=== PATIENT | male | born 1985 | race Caucasian/White ===

== ENCOUNTER 2019-01-29 19:39 | Emergency (ER) | payer SELFPAY ==
[2019-01-29] MEDS ORDERED: SODIUM CHLORIDE 0.9% FLUSH 10 ML SOL IV PRN (19:58)
[2019-01-29] MEDS ORDERED: ONDANSETRON HCL 4 MG/2 ML SOL IV ONE (19:58)
[2019-01-29] MEDS ORDERED: MORPHINE SULFATE 10 MG/ML SOL IV ONE (19:58)
[2019-01-29] MEDS ORDERED: ONDANSETRON HCL 4 MG/2 ML SOL ONE (19:59)
[2019-01-29] MEDS ORDERED: MORPHINE SULFATE 10 MG/ML SOL ONE (19:59)
[2019-01-29] MEDS ORDERED: LIDOCAINE HCL 2% (VISCOUS) 15 ML SOL ONE (20:04)
[2019-01-29] MEDS ORDERED: LIDOCAINE HCL 2% (VISCOUS) 15 ML SOL MT ONE (20:12)
[2019-01-29] MEDS ORDERED: [UNRECOGNIZED DRUG - OTHER] PR ONE (20:30)
[2019-01-29] MEDS ORDERED: [UNRECOGNIZED DRUG - OTHER] PR SCH (20:45)
[2019-01-29 23:03] VITALS: PULSE 76
[2019-01-29 23:04] VITALS: BP 125/79; RESP 13; TEMP 98.7; O2SAT 96
== END 2019-01-29 20:58 | disposition home or self-care (01) | DRG 395 ==
LOC: ED 19:39 → SUPCPDRO 19:39 → ED 20:58
DX: K62.3 Rectal prolapse (principal)
CPT/HCPCS: 96374; 96375; 99284; J2270; J2405; A9270-GY

== ENCOUNTER 2019-02-26 09:49 | Day surgery (SDC) | payer SELFPAY ==
[~2019-02-26 09:49] MED LIST: LIDOCAINE HCL 1% MPF 30 SOL ONE; PROPOFOL 500 MG/50 ML EMU IV ONE
[2019-02-26 11:39] VITALS: BP 120/76; PULSE 65; RESP 16; TEMP 98.2; O2SAT 98
== END 2019-02-26 11:57 | disposition home or self-care (01) | DRG 395 ==
LOC: SURG 09:49
PROVIDERS: ATTEND Surgery
DX: K62.89 Other specified diseases of anus and rectum (principal)
CPT/HCPCS: J2001; J2704